=== PATIENT | male | born 1975 | race American Indian/Alaskan Native ===

== ENCOUNTER 2016-12-02 00:26 | Emergency (ER) | payer SELFPAY ==
[2016-12-02 02:29] LABS: Basophils % (Auto) 0.6 % (0.0-1.8); Eosinophils % (Auto) 0.1 % (0.0-4.3); Hematocrit 40.5 % (35.5-45.6); Hemoglobin 13.4 gm/dl (11.8-15.2); Mean Corpuscular HGB Conc 33 % (32-34); Mean Corpuscular Hemoglobin 29 pg (28-32); Mean Corpuscular Volume 89 fl (84-94); Platelet Count 184 K/mm3 (140-440); Red Blood Count 4.56 M/mm3 (3.65-5.03); Red Cell Distribution Width 12.6 % (13.2-15.2); White Blood Count 10.4 K/mm3 (4.5-11.0)
[2016-12-02 02:50] LABS: Anion Gap 19 mmol/L; BUN/Creatinine Ratio 10.83; Blood Urea Nitrogen 13 mg/dL (9-20); Carbon Dioxide 22 mmol/L (22-30); Chloride 99.2 mmol/L (98-107); Creatine Kinase 326 units/L (55-170); Glucose 119 mg/dL (75-100); Potassium 4.1 mmol/L (3.6-5.0); Sodium 136 mmol/L (137-145)
[2016-12-02 02:51] LABS: Creatine Kinase MB < 1.0 ng/mL (0.0-4.0)
--- NOTE | 2016-12-02 05:43 | Cat Scan Report ---
FINAL REPORT PROCEDURE: CT HEAD/BRAIN WO CON TECHNIQUE: Computerized tomography of the head was performed without contrast material. HISTORY: syncope COMPARISON: No prior studies are available for comparison. FINDINGS: Skull and scalp: Normal. Paranasal sinuses: Normal. Ventricles and subarachnoid spaces: Normal. Cerebrum: No evidence of hemorrhage, acute infarction or mass . Cerebellum and brainstem: No evidence of hemorrhage, acute infarction or mass. Vasculature: Normal. Comments: None. IMPRESSION: There is no evidence of an acute intracranial process.
[2016-12-02 05:56] LABS: Urine Drugs of Abuse Note Disclamer
[2016-12-02 06:06] LABS: Bilirubin,Urine NEG (Negative); Blood,Urine NEG (Negative); Ketones,Urine 20 mg/dL (Negative); Leukocyte Esterase,Urine NEG (Negative); Mucus,Urine FEW /HPF; Nitrite,Urine NEG (Negative); Protein,Urine <15 mg/dL mg/dL (Negative)
[2016-12-02] MEDS ORDERED: ZOFRAN ODT PO ONE (06:54)
[2016-12-02] MEDS ORDERED: TYLENOL PO ONE (06:54)
--- NOTE | 2016-12-02 07:04 | Emergency Department Report ---
<EVELYN SIMEON - Last Filed: 12/03/16 19:18> ED Syncope HPI - General Chief Complaint: Syncope Stated Complaint: SYNCOPAL EPISODE Time Seen by Provider: 12/02/16 05:10 - History of Present Illness Initial Comments: 41-year-old male no significant past medical history presents with complaint of 3 days of fevers chills cough, mild nausea 2 episodes of vomiting. Patient states that he has been feeling weaker than usual was at home tonight and had a brief syncopal episode while on couch, slumped to floor was on floor for about a minute then got up. Patient states he feels very weak. Patient denies any chest pain palpitations states he feels slightly nauseous. Awake alert and oriented 3 ambulatory without assistance denies any paresthesias. States he recently had contact work with someone who had the flu. Timing/Prior Episodes: no prior history Precipitating Factors: Positive: lightheadedness Context: sitting Loss of Consciousness: brief (seconds) Current Symptoms: back to normal - Related Data Allergies/Adverse Reactions: Allergies No Known Allergies Allergy (Verified 07/14/13 21:25) Home Medications: Ambulatory Orders Ibuprofen [Motrin] 800 mg PO Q8H PRN #20 tablet 04/25/14 Cetirizine HCl [ZyrTEC] 10 mg PO QDAY #30 capsule 12/02/16 Oxymetazoline 0.05% [Afrin] 1 spray NS Q12H #1 bottle 12/02/16 Pseudoephedrine [Sudafed] 60 mg PO BID #60 tab 12/02/16 ED Review of Systems ROS: Stated complaint: SYNCOPAL EPISODE Other details as noted in HPI Constitutional: malaise. denies: chills, fever Eyes: denies: eye pain, eye discharge, vision change ENT: congestion. denies: ear pain, throat pain Respiratory: denies: cough, shortness of breath, wheezing Cardiovascular: denies: chest pain, palpitations Endocrine: no symptoms reported Gastrointestinal: denies: abdominal pain, nausea, diarrhea Genitourinary: denies: urgency, dysuria Musculoskeletal: denies: back pain, joint swelling, arthralgia Skin: denies: rash, lesions Neurological: denies: headache, weakness, paresthesias Psychiatric: denies: anxiety, depression Hematological/Lymphatic: denies: easy bleeding, easy bruising ED Past Medical Hx - Past Medical History Previous Medical History?: No - Surgical History Past Surgical History?: No - Social History Smoking Status: Never Smoker Substance Use Type: None - Medications Home Medications: Home Medications Medication Instructions Recorded Confirmed Last Taken Type Ibuprofen [Motrin] 800 mg PO Q8H PRN #20 tablet 04/25/14 Unknown Rx Cetirizine HCl [ZyrTEC] 10 mg PO QDAY #30 capsule 12/02/16 Unknown Rx Oxymetazoline 0.05% [Afrin] 1 spray NS Q12H #1 bottle 12/02/16 Unknown Rx Pseudoephedrine [Sudafed] 60 mg PO BID #60 tab 12/02/16 Unknown Rx ED Physical Exam - General Limitations: No Limitations General appearance: alert, in no apparent distress - Head Head exam: Present: atraumatic, normocephalic - Eye Eye exam: Present: normal appearance, PERRL, EOMI - ENT ENT exam: Present: mucous membranes moist - Neck Neck exam: Present: normal inspection, full ROM - Respiratory Respiratory exam: Present: normal lung sounds bilaterally. Absent: respiratory distress - Cardiovascular Cardiovascular Exam: Present: regular rate, normal rhythm. Absent: systolic murmur, diastolic murmur, rubs, gallop - GI/Abdominal GI/Abdominal exam: Present: soft, normal bowel sounds - Rectal Rectal exam: Present: deferred - Extremities Exam Extremities exam: Present: normal inspection - Back Exam Back exam: Present: normal inspection - Neurological Exam Neurological exam: Present: alert, oriented X3, CN II-XII intact, normal gait - Expanded Neurological Exam Expanded Patient oriented to: Present: person, place, time Speech: Present: fluid speech Cranial nerves: EOM's Intact: Normal, Facial Sensation: Normal, Facial Palsy with Forehead Movement: Normal Cerebellar function: Finger to Nose: Normal, Heel to Perry: Normal, Romberg: Normal Sensory exam: Upper Extremity Light Touch: Normal, Lower Extremity Light Touch: Normal Motor strength exam: RUE: 5, LUE: 5, RLE: 5, LLE: 5 DTR: bicep (R): 3+, bicep (L): 3+, tricep (R): 3+, tricep (L): 3+, knee (R): 3+ , knee (L): 3+, ankle (R): 3+, ankle (L): 3+ Best Eye Response ([place]): (4) open spontaneously Best Motor Response (Penny): (6) obeys commands Best Verbal Response (Penny): (5) oriented [place] Total: 15 - Psychiatric Psychiatric exam: Present: normal affect, normal mood - Skin Skin exam: Present: warm, dry, intact, normal color. Absent: rash ED Course Vital Signs 12/02/16 12/02/16 01:28 07:22 Temperature 100.6 F H 99.8 F H Pulse Rate 103 H 95 H Respiratory 18 18 Rate Blood Pressure 137/79 145/84 [Right] O2 Sat by Pulse 98 100 Oximetry ED Medical Decision Making - Lab Data Result diagrams: 12/02/16 02:07 12/02/16 02:07 - Medical Decision Making A/P: Influenza A, syncopal episode 1-labs, CT heasd, EKG, chest x-ray within normal limits. Patient has viral syndrome, now tolerating by mouth, states he feels better. 2-Motrin, Mucinex for symptomatic relief 3-advised patient to return to the ED if he experiences inability to tolerate anything by mouth fevers that are not controlled with Tylenol or Motrin, worsening productive cough. 4-follow up with primary care doctor 5- HEART Score 0 Critical care attestation.: If time is entered above; I have spent that time in minutes in the direct care of this critically ill patient, excluding procedure time. ED Disposition Clinical Impression: Syncopal episodes, Dehydration, Viral syndrome Disposition: DISCHARGED TO HOME OR SELFCARE Is pt being admited?: No Does the pt Need Aspirin: No Condition: Stable Instructions: Syncope (ED), Influenza (ED) Additional Instructions: Take medication as prescribed. Very importantly to follow to primary care provider return to the emergency room if symptoms get worse or does not improve. Prescriptions: Cetirizine HCl [ZyrTEC] 10 mg PO QDAY #30 capsule Oxymetazoline 0.05% [Afrin] 1 spray NS Q12H #1 bottle Pseudoephedrine [Sudafed] 60 mg PO BID #60 tab Referrals: PRIMARY CARE, [Primary Care Provider] - 3-5 Days Forms: Work/School Release Form(ED) <MASHA BURNS - Last Filed: 12/06/16 01:49> ED Medical Decision Making - Lab Data Result diagrams: 12/02/16 02:07 12/02/16 02:07 - Medical Decision Making UA suggestive of dehydration likely due to viral syndrome. Pt received NS prior to d/c
[2016-12-02] MEDS ORDERED: NACL 0.9% 1000 ML 1,000 ML IV ONE (07:15)
[2016-12-02 07:23] VITALS: BP 145/84
--- NOTE | 2016-12-02 07:24 | XRay Report ---
ROUTINE CHEST, TWO VIEWS: HISTORY: Syncope. The trachea, heart, mediastinal contour, lung mueller and bony thorax are unremarkable. IMPRESSION: Unremarkable chest x-ray.
--- NOTE | 2016-12-02 07:34 | Emergency Department Report ---
Blank Doc - Documentation Documentation: Patient was signed out to this provider last night for DENIZ Maldonado. DENIZ Maldonado' s concern was that the patient was developed tachycardia as well as febrile. He requested IV fluids under the presentation if the patient's vital signs is not improving. Nursemaid's E repeated the vital signs heart rate 95 temperature is 98.3 we would discharge patient home without IV fluids.
--- NOTE | 2016-12-02 07:50 | Emergency Department Report ---
HPI - General Chief Complaint: Syncope Time Seen by Provider: 12/02/16 05:10 - HPI HPI: 41-year-old -[place] male comes in for recent sinus issues he has taken [id number] TheraFlu and he had a syncopal moment yesterday. Patient admits to body aches cough sweaty fever chills positive sneezing and runny nose and feeling kind a week. Patient reports that he found himself down on the floor after leaning over the sink. He denies any LOC denies hitting his head. Ecchymosis his symptoms have been going on for greater than 3 days ED Past Medical Hx - Past Medical History Previous Medical History?: No - Surgical History Past Surgical History?: No - Social History Smoking Status: Never Smoker Substance Use Type: None - Medications Home Medications: Home Medications Medication Instructions Recorded Confirmed Last Taken Type Ibuprofen [Motrin] 800 mg PO Q8H PRN #20 tablet 04/25/14 Unknown Rx Cetirizine HCl [ZyrTEC] 10 mg PO QDAY #30 capsule 12/02/16 Unknown Rx Oxymetazoline 0.05% [Afrin] 1 spray NS Q12H #1 bottle 12/02/16 Unknown Rx Pseudoephedrine [Sudafed] 60 mg PO BID #60 tab 12/02/16 Unknown Rx ED Review of Systems ROS: Stated complaint: SYNCOPAL EPISODE Other details as noted in HPI Constitutional: chills, fever, weakness Eyes: denies: eye pain, eye discharge, vision change ENT: throat pain, congestion (nasal) Respiratory: cough Endocrine: excessive sweating, flushing Gastrointestinal: denies: abdominal pain, nausea, vomiting, diarrhea Genitourinary: denies: urgency, dysuria Neurological: headache Physical Exam - Physical Exam Vital Signs: Vital Signs 12/02/16 12/02/16 01:28 07:22 Temperature 100.6 F H 99.8 F H Pulse Rate 103 H 95 H Respiratory 18 18 Rate Blood Pressure 137/79 145/84 [Right] O2 Sat by Pulse 98 100 Oximetry Physical Exam: GENERAL: Alert and oriented x3, no apparent distress, Normal Gait, atraumatic. HEAD: Head is normocephalic and a-traumatic. EYES: Extra ocular muscles are intact. Pupils are equal, round, and reactive to light and accommodation. EARS: symetrical, atraumatic, non tender, ear canal clear and moderate cerumen, tympanic membrance non inflamed. gross auditory nml bilaterally. NOSE: Nose symetrical, Nontender,Nares appeared normal. MOUTH:Mouth is well hydrated and without lesions. Tonsils nonerythematous or swollen, Uvula midline, Tongue not elevated. Mucous membranes are moist. Posterior pharynx clear, no exudate or lesions. Patent airways. post nasal drip NECK: Supple. Non edematous, No carotid bruits. No lymphadenopathy or thyromegaly. LUNGS: Symetrical with respiration, No wheezing, no rales or crackles, CTAB. HEART: S1, S2 present, regular rate and rhythm without murmur, no rubs, no gallops. ABDOMEN: No organomegaly was noted,Positive bowel sounds, soft, and non- distended. . Nontender to palpation on all Quadrants, NO CVA tenderness. NEUROLOGIC: No focal Deficit, Cranial nerves II through XII are grossly intact. No loss of sensation, No facial droop, PSYCHIATRIC: Mood is congruent with affect, SKIN: Warm and dry, No lesions, No ulceration or induration present ED Course Vital Signs 12/02/16 12/02/16 01:28 07:22 Temperature 100.6 F H 99.8 F H Pulse Rate 103 H 95 H Respiratory 18 18 Rate Blood Pressure 137/79 145/84 [Right] O2 Sat by Pulse 98 100 Oximetry - Reevaluation(s) Reevaluation #1: 12/02/16 07:56 Patient reports that he feels much better after having the Tylenol. 12/02/16 08:06 ED Medical Decision Making - Lab Data Result diagrams: 12/02/16 02:07 12/02/16 02:07 - Medical Decision Making 41-year-old male presents today with syncopal and URI symptoms. Labs reveal strep A positive. Chest x-ray showed unremarkable, head CT there is no evidence of acute intracranial processes. He is in no acute distress at this time. He'll be discharged home and encouraged to follow-up with a primary care provider he is encouraged to return to the emergency room for any worsening symptoms. Critical care attestation.: If time is entered above; I have spent that time in minutes in the direct care of this critically ill patient, excluding procedure time. ED Disposition Clinical Impression: Influenza A, Syncopal episodes Disposition: DISCHARGED TO HOME OR SELFCARE Is pt being admited?: No Does the pt Need Aspirin: No Condition: Stable Instructions: Influenza (ED), Syncope (ED) Additional Instructions: Take medication as prescribed. Very importantly to follow to primary care provider return to the emergency room if symptoms get worse or does not improve. Prescriptions: Cetirizine HCl [ZyrTEC] 10 mg PO QDAY #30 capsule Oxymetazoline 0.05% [Afrin] 1 spray NS Q12H #1 bottle Pseudoephedrine [Sudafed] 60 mg PO BID #60 tab Referrals: PRIMARY CARE, [Primary Care Provider] - 3-5 Days Forms: Work/School Release Form(ED)
== END 2016-12-02 08:12 | disposition home or self-care (01) ==
LOC: ED 00:26
DX: E86.0 Dehydration (principal); B34.9 Viral infection, unspecified; R55 Syncope and collapse
CPT/HCPCS: 36415; 70450; 71020; 80048; 80307; 81001; 82550; 82553; 84484; 85025; 87086; 87400; 93005; 93010; Q0162